=== PATIENT | male | born 1970 | race Caucasian/White ===

== ENCOUNTER 2023-07-03 13:25 | Emergency (ER) | payer BC, SELFPAY ==
[2023-07-03 13:29] VITALS: BP 165/118
--- NOTE | 2023-07-03 16:12 | ED.GENMED ---
History of Present Illness
General
Chief Complaint: Exposure-Chemical
Source: patient
Exam Limitations: none
Time Seen by Provider: 07/03/23 15:52
Travel History
Have you had any contact with someone who has COVID-19?: No
Do you have any symptoms of coronavirus? Fever > 100 degrees, chills, cough, shortness of breath, sore throat, loss of taste or smell, muscle aches, or headache?: No
History of Present Illness
History of Present Illness:
52-year-old otherwise healthy male presents with complaints of eye irritation chest burning occasional tightness related to a propane gas exposure. He states his neighbor uses a grill while outside of his window and propane fumes coming to his
house. His carbon monoxide detector was checked and was not going off. He is talk to management in his home community about this. He is trying to get the homeowner to move the grill. He does deal with seasonal allergies. He has been using
Josselyn. No other complaints at this time
Past History
Past History
ED Past Medical History: None
ED Past Surgical History: None
Social History
Tobacco: Non-smoker
Phy Exam
Physical Exam
Physical Exam:
General: Well-appearing male no acute respiratory distress
HEENT: Normocephalic atraumatic
The rate and rhythm no murmurs
Lungs: Clear to auscultation bilaterally no wheezing
Extremities: No cyanosis or edema
Skin: Warm no rash
Course
Orders/Labs/Results
Orders:
Orders
07/03/23 16:41
Carboxyhemoglobin Urgent
Complete Blood Count/With Diff Urgent
Comprehensive Metabolic Panel Urgent
Abnormal Lab Results
07/03/23
16:41
MPV 10.5 H fL
(7.4-10.4)
Glucose 103 H mg/dl
(70-99)
07/03/23 16:41
07/03/23 16:41
Vital Signs
Initial and Last Documented VS:
Initial Vital Signs
Temp Pulse Resp BP Pulse Ox
98.2 F 82 18 165/118 100
07/03/23 13:29 07/03/23 13:29 07/03/23 13:29 07/03/23 13:29 07/03/23 13:29
Last Documented Vital Signs
Temp Pulse Resp BP Pulse Ox
98.2 F 82 18 165/118 99
07/03/23 13:29 07/03/23 13:29 07/03/23 13:29 07/03/23 13:29 07/03/23 15:59
MDM/Problems Addressed
Differential Diagnosis Includes:
Propane gas exposure. Carbon monoxide detector was checked and has not gone off. Explained to him that propane exposure could be a local irritant. Lungs are clear. Will prescribe inhaler for bronchospasm. No indication for any further testing.
*Critical Care Note
Total Time (30-74mins, 75-104mins- exclusive of procedures): Not Applicable
ED Attending Note
-
Portions of this chart may have been created with voice recognition software.� Occasional wrong word or��sound alike� substitutions may have occurred due to the inherent limitations of voice recognition software.
Discharge Plan
Departure
Patient Disposition: Home (Routine Discharge)
Date of Disposition: 07/03/23
Time of Disposition: 17:03
Patient with high blood pressure during this ER visit?: No
Discharge Problem:
Exposure to Propane Gas
Prescriptions:
New
albuterol sulfate [Ventolin HFA] 90 mcg/actuation HFA aerosol inhaler
1 inh inhalation Q6H PRN (Reason: shortness of breath or wheezing) Qty: 6.7 0RF
Activity Restrictions/Additional Instructions:
Use inhaler as needed for chest tightness. Avoid irritant that causes your symptoms. Return for worsening symptoms otherwise
Interventions
Interventions:
*Risk Screen - Suicide Last Done: 07/03/23 13:33
*General Assessment Last Done: 07/03/23 13:29
*Neglect/Abuse Screening Last Done: 07/03/23 13:29
*ED COVID-19 Vaccine History Last Done: 07/03/23 13:29
*Nursing Disposition Last Done: 07/03/23 17:28
ED-EENT Assessment Last Done: 07/03/23 16:36
ED- Pulmonary Assessment Last Done: 07/03/23 15:59
ED-Skin Assessment Last Done: 07/03/23 16:33
Discharge Date and Time
Discharge Date/Time: 07/03/23 17:30
[2023-07-03 16:37] VITALS: BMI 26.9
[2023-07-03 16:49] LABS: Carboxyhemoglobin 2.1 %
[2023-07-03 16:50] LABS: % Basophils 1.1 % (0-2); % Eosinophils 1.5 % (0-6); % Immature Granulocytes 0.2 % (0-0.5); % Lymphocytes 34.4 % (20.5-51.1); % Monocytes 8.2 % (1.7-9.3); % Neutrophils 54.6 % (42.2-75.2); Absolute Basophils 0.1 10^3/uL (0-0.2); Absolute Eosinophils 0.1 10^3/uL (0-0.7); Absolute Lymphocytes 1.8 10^3/uL (1.2-3.4); Absolute Monocytes 0.4 10^3/uL (0.1-0.6); Absolute Neutrophils 2.9 10^3/uL (1.4-6.5); Hematocrit 42.6 % (39.0-52.0); Hemoglobin 15.3 g/dL (13.0-18.0); Mean Corp Hgb Conc. 35.9 g/dL (33.0-37.0); Mean Corpuscular Hgb 29.7 pg (27.0-31.0); Mean Corpuscular Volume 82.7 fL (80.0-94.0); Mean Platelet Volume 10.5 fL (7.4-10.4); Nucleated Red Blood Cells % 0 % (-); Platelet Count 182 10^3/uL (130-400); Red Blood Cell Count 5.15 10^6/uL (4.70-6.10); Red Cell Dist. Width 12.7 % (11.5-14.5); White Blood Cell Count 5.3 10^3/uL (4.8-10.8)
[2023-07-03 17:10] LABS: ALT (SGPT) 39 U/L (0-50); AST (SGOT) 39 U/L (17-59); Albumin 4.3 g/dl (3.5-5.0); Alkaline Phosphatase 70 U/L (38-126); Blood Urea Nitrogen 14 mg/dl (9-20); Calcium 10.2 mg/dl (8.4-10.2); Carbon Dioxide 26 mmol/L (22-30); Chloride 101 mmol/L (98-107); Estimated Creatinine Clearance 89 ml/min; Glucose 103 mg/dl (70-99); Potassium 3.8 mmol/L (3.5-5.1); Sodium 138 mmol/L (135-145); Total Bilirubin 1.2 mg/dl (0.2-1.3); Total Protein 6.9 g/dl (6.3-8.2); eGFR > 60.00
== END 2023-07-03 17:30 | disposition home or self-care (01) ==
LOC: EMR 13:25
PROVIDERS: Physician Assistant; EMERGENCY PHYSICIAN Emergency Medicine; FAMILY PHYSICIAN Physician Assistant Medical
DX: R06.02 Shortness of breath (principal); T59.91XA Toxic effect of unspecified gases, fumes and vapors, accidental (unintentional), initial encounter
CPT/HCPCS: 99283; 80053; 82375; 85025